=== PATIENT | male | born 2000 | race Caucasian/White ===

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

== ENCOUNTER 2020-03-31 04:50 | Emergency (ER) | payer MEDICAID ==
[~2020-03-31] VITALS: Ht 175.3 cm; Wt 63.5 kg
[2020-03-31 04:52] VITALS: Ht 175.3 cm; Wt 63.5 kg
[2020-03-31 06:07] LABS: CALCIUM 8.7 mg/dL (8.5-10.1); CARBON DIOXIDE 23.8 mmol/L (21-32); CHLORIDE SERUM 103 mmol/L (98-107); CREATININE SERUM 0.8 mg/dL (0.7-1.3); GFR1 > 60 mL/min; GLUCOSE SERUM 118 mg/dL (74-106); POTASSIUM SERUM 3.6 mmol/L (3.5-5.1); SODIUM SERUM 136 mmol/L (136-145)
[2020-03-31 06:13] LABS: BASOPHIL % 0.2 % (0-2); PLATELET COUNT 213 x10^3mcL (130-400); RED CELL DISTRIBUTION WIDTH 12.6 % (11.5-14.5)
[2020-03-31 06:25] LABS: TOTAL PROTEIN, SERUM 7.4 g/dL (6.4-8.2)
[2020-03-31 06:26] LABS: ALKALINE PHOSPHATASE 68 U/L (46-116); ALT/SGPT 15 U/L (16-63); AST/SGOT 17 U/L (15-37); BILIRUBIN TOTAL 0.62 mg/dL (0.20-1.00); LIPASE 108 IU/L (73-393)
[2020-03-31 07:18] VITALS: BP 115/76
== END 2020-03-31 06:23 | disposition home or self-care (01) ==
LOC: ED 04:50
PROVIDERS: Emergency Medicine
DX: K52.9 Noninfective gastroenteritis and colitis, unspecified (principal)
CPT/HCPCS: J0500; J1885; J2405

== ENCOUNTER 2020-06-01 12:34 | Emergency (ER) | payer MEDICAID ==
[~2020-06-01] VITALS: Ht 175.3 cm; Wt 62.6 kg
[2020-06-01 13:00] VITALS: BP 132/74; Ht 175.3 cm; Wt 62.6 kg
== END 2020-06-01 14:44 | disposition home or self-care (01) ==
LOC: ED 12:34
DX: A54.9 Gonococcal infection, unspecified (principal)
CPT/HCPCS: 87491; 87591; J0696

== ENCOUNTER 2020-08-18 19:30 | Emergency (ER) | payer MEDICAID, SELFPAY ==
[~2020-08-18] VITALS: Ht 175.3 cm; Wt 63.5 kg
[2020-08-18 19:32] VITALS: Ht 175.3 cm; Wt 63.5 kg
[2020-08-18 20:33] VITALS: BP 121/69
== END 2020-08-18 20:33 | disposition home or self-care (01) ==
LOC: ED 19:30
DX: B34.9 Viral infection, unspecified (principal); J02.9 Acute pharyngitis, unspecified; Z20.822 Contact with and (suspected) exposure to COVID-19
CPT/HCPCS: U0003